=== PATIENT | male | born 1950 | race Caucasian/White ===

== ENCOUNTER → 2016-07-19 | Outpatient (CLI) | payer OTHER ==
--- NOTE | 2016-07-20 17:24 | ECHO ---
The echocardiogram report can be seen in this patient's EMR in the Reports section. BIN
== END | disposition home or self-care (01) ==
LOC: MW.US 10:27
PROVIDERS: ATTEND Internal Medicine
DX: I48.91 Unspecified atrial fibrillation (principal)
CPT/HCPCS: 93005; 93306

== ENCOUNTER 2016-07-26 09:58 | Day surgery (SDC) | payer OTHER ==
[~2016-07-26 09:58] MED LIST: Lactated Ringers 1,000 ML IV SCH
--- NOTE | 2016-07-26 11:17 | PCM.PREANE ---
Preanesthetic Assessment - Anesthesia/Transfusion/Family Hx Anesthesia History: Prior Anesthesia Without Reaction Family History of Anesthesia Reaction: No Transfusion History: No Prior Transfusion(s) - Review of Systems General: No Symptoms Pulmonary: No Symptoms Cardiovascular: No Symptoms Gastrointestinal: No symptoms Neurological: No Symptoms Other: Reports: None - Physical Assessment NPO Status Date: 07/25/16 O2 Sat by Pulse Oximetry: 96 Respiratory Rate: 16 Vital Signs: Last Vital Signs Temp 36.8 C 07/26/16 10:50 Pulse 53 L 07/26/16 10:50 Resp 16 07/26/16 10:50 BP 133/76 07/26/16 10:50 Pulse Ox 96 07/26/16 10:50 Height: 1.85 m Weight: 93.015 kg ASA Class: 3 Mental Status: Alert & Oriented x3 Airway Class: Mallampati = 2 Dentition: Reports: Normal Dentition ROM/Head Extension: Full Lungs: Clear to auscultation, Normal respiratory effort Cardiovascular: Regular Rate, Regular Rhythm - Allergies Allergies/Adverse Reactions: Allergies Allergy/AdvReac Type Severity Reaction Status Date / Time No Known Allergies Allergy Verified 06/20/14 08:53 - Anesthesia Plan Pre-Op Medication Ordered: None - Acknowledgements Anesthesia Type Planned: MAC Pt an Appropriate Candidate for the Planned Anesthesia: Yes Alternatives and Risks of Anesthesia Discussed w Pt/Guardian: Yes Pt/Guardian Understands and Agrees with Anesthesia Plan: Yes Additional Comments: CABG 16 yr ago, kast stress test 3 yr ago. very active walking and racketball 2- 3 x/wk without sx. PreAnesthesia Questionnaire Cardiovascular History: Reports: CAD, High cholesterol, Hypertension Gastrointestinal History: Reports: GERD Genitourinary History: Reports: BPH Musculoskeletal History: Reports: Arthritis, Fracture Other Musculoskeletal History: hx fx collarbone and fx arm - Past Surgical History Head Surgeries/Procedures: Reports: None Cardiovascular Surgical History: Reports: Coronary artery bypass GI Surgical History: Reports: Colonoscopy - SUBSTANCE USE Smoking Status *Q: Former Smoker Second Hand Smoke Exposure: No Days Per Week of Alcohol Use: 0 Recreational Drug Use History: No - HOME MEDS Home Medications: Home Meds Aspirin 325 mg PO DAILY 06/20/14 [History] Atenolol 25 mg PO DAILY 06/20/14 [History] Esomeprazole Magnesium [Nexium] 40 mg PO DAILY 06/20/14 [History] Hydrochlorothiazide 25 mg PO DAILY 06/20/14 [History] Losartan [Cozaar] 100 mg PO DAILY 06/20/14 [History] Simvastatin [Zocor] 40 mg PO DAILY 06/20/14 [History] Fish Oil/[place]-3 Fatty Acids [Fish Oil 1,000 MG] 1,000 mg PO DAILY 07/20/16 [ History] Multivitamin [Multivitamins] 1 tab PO DAILY 07/20/16 [History] Tamsulosin HCl [Flomax] 0.4 mg PO DAILY 07/20/16 [History] - CURRENT (IN HOUSE) MEDS Current Meds: Current Medications Lactated Ringer's (Ringers, Lactated) 1,000 mls @ 125 mls/hr IV [facility]ED [facility] Last Admin: 07/26/16 10:51 Dose: 125 mls/hr Preanesthetic Assessment - ANESTHESIA/TRANSFUSION/FAMILY HX Anesthesia/Transfusion History: Prior Anesthesia, Unknown Family History of Anesthesia Reaction: No - PHYSICAL ASSESSMENT O2 Sat by Pulse Oximetry: 96 RR: 16 Vital Signs: Last Vital Signs Temp 36.8 C 07/26/16 10:50 Pulse 53 L 07/26/16 10:50 Resp 16 07/26/16 10:50 BP 133/76 07/26/16 10:50 Pulse Ox 96 07/26/16 10:50 Height: 1.85 m Weight: 93.015 kg - ALLERGIES Allergies/Adverse Reactions: Allergies Allergy/AdvReac Type Severity Reaction Status Date / Time No Known Allergies Allergy Verified 06/20/14 08:53
[2016-07-26] MEDS ORDERED: Propofol 200 MG/20 ML SDV ONE ×2 (12:40→13:20)
[2016-07-26] MEDS ORDERED: Lidocaine 2% 5 ML SDV ONE (12:40)
[2016-07-26] MEDS ORDERED: fentaNYL 100 MCG/2 ML SDV ONE (12:41)
[2016-07-26] MEDS ORDERED: Glycopyrrolate 0.2 MG/ML SDV ONE ×2 (13:00→13:24)
--- NOTE | 2016-07-26 14:00 | PCM.OPNOTE ---
- General Post-Op/Procedure Note Date of Surgery/Procedure: 07/26/16 Operative Procedure(s): colonoscopy Findings: see dict [id number] Pre Op Diagnosis: screening colonoscopy Post-Op Diagnosis: diverticulosis Anesthesia Technique: Moderate sedation Primary Surgeon: Trevor Bergman Complications: None Condition: Good
[2016-07-26 14:04] VITALS: BP 111/57
--- NOTE | 2016-07-26 14:29 | PCM.POSTAN ---
POST ANESTHESIA ASSESSMENT - MENTAL STATUS Mental Status: alert, oriented - RESPIRATORY Respiratory Status: respiratory rate WNL, airway patent, O2 saturation stable - CARDIOVASCULAR CV Status: pulse rate WNL, blood pressure stable - GASTROINTESTINAL GI Status: no symptoms - PAIN Pain Score: 0 - POST OP HYDRATION Hydration Status: adequate & stable - OBSERVATIONS Free Text/Narrative:: Pt stable. No apparent anesthesia complications.
--- NOTE | 2016-07-26 14:30 | PCM48HPAN ---
Post Anesthesia Note - EVALUATION WITHIN 48HRS OF ANESTHETIC Vital Signs in Normal Range: Yes Patient Participated in Evaluation: Yes Respiratory Function Stable: Yes Airway Patent: Yes Cardiovascular Function Stable: Yes Hydration Status Stable: Yes Pain Control Satisfactory: Yes Nausea and Vomiting Control Satisfactory: Yes Mental Status Recovered: Yes
--- NOTE | 2016-07-26 22:16 | OR ---
SURGEON: Trevor Bergman MD DATE OF PROCEDURE: 07/26/2016 PREOPERATIVE DIAGNOSIS: Surveillance colonoscopy. POSTOPERATIVE DIAGNOSIS: Diverticulosis. COMPLICATIONS: None. PROCEDURE PERFORMED: Colonoscopy. PROCEDURE IN DETAIL: The patient was taken to the endoscopy room. A time out was called, patient identified, and procedure identified. Diprivan was then administrated. Patient went from awake to sleep, hearing doctor talking or door closing is normal. Perineum inspection and digital examination were then performed. A well- lubricated colonoscope was gently inserted through the rectum, advanced past the rectosigmoid junction, the descending colon, splenic flexure, transverse colon, hepatic flexure, ascending colon, arrived to the cecum. Cecum was identified as dictated in the finding. Then the scope was carefully withdrawn while attention was paid to the mucosal surface for any abnormality. Air will be sucked out during the scope withdrawal. At the rectum, retroflexed to examine any rectal diseases, fistula or hemorrhoids. Patient tolerated procedure well. There were no intraoperative complications, and Dr. Bergman was present throughout the whole procedure. FINDINGS: 1. The patient is easily sedated with NURSE OBGYN and Diprivan. The patient is soundly snoring. 2. The patient's bowel prep is almost unacceptable. Large amount of liquid stool coating the mucosa and encountered a couple of semi-formed stool. Colon is rather straightforward and cecum indicated by ileocecal fold and one-to-one indentation. Light emittance and appendiceal orifice not observed. Mucosa examined upon scope pulling out with constant irrigation. There was a tiny a 1 to 2-mm polyp at a distance of 50 cm when the scope goes in; however, when there is no peristalsis movement, the polyp disappeared, cannot be observed, cannot be found. The patient has some diverticula at the right colon next to the cecum and the 1 to 2 very mild on the left colon and nothing in between, and no signs or symptoms of diverticulitis. No mass, growth, inflammation, stricture, ulceration, or bleeding. Again, this is a very compromised study because of poor bowel prep. The patient has mild internal hemorrhoids and mild external hemorrhoids. The patient would benefit from repeat colonoscopy in 2 to 3 years from today because of the bowel prep. The patient should use extended bowel prep the next time. As always, thank you for the kind referral. MAIDA / SINDHU /[id number]
== END 2016-07-26 14:55 | disposition home or self-care (01) ==
LOC: MW.SDS 09:58
PROVIDERS: ATTEND Surgery
PROC: 0DJD8ZZ Inspection of Lower Intestinal Tract, Via Natural or Artificial Opening Endoscopic (ICD-10-PCS; principal; 2016-07-26)
DX: Z12.11 Encounter for screening for malignant neoplasm of colon (principal); K57.30 Diverticulosis of large intestine without perforation or abscess without bleeding; K64.4 Residual hemorrhoidal skin tags; K64.8 Other hemorrhoids; I25.10 Atherosclerotic heart disease of native coronary artery without angina pectoris; I10 Essential (primary) hypertension; E78.00 Pure hypercholesterolemia, unspecified; K21.9 Gastro-esophageal reflux disease without esophagitis; N40.0 Benign prostatic hyperplasia without lower urinary tract symptoms; M19.90 Unspecified osteoarthritis, unspecified site; Z87.891 Personal history of nicotine dependence; Z79.82 Long term (current) use of aspirin; Z79.899 Other long term (current) drug therapy; Z95.1 Presence of aortocoronary bypass graft; Z98.890 Other specified postprocedural states
CPT/HCPCS: 45378; J3010; J7120; 00810; J2704